=== PATIENT | female | born 1995 | race Caucasian/White ===

== ENCOUNTER → 2024-03-03 16:51 | Outpatient (REF) | payer OTHER, SELFPAY | LOC: PNTC 16:51 | PROVIDERS: ATTENDING PHYSICIAN Obstetrics & Gynecology | DX: Z36.0 Encounter for antenatal screening for chromosomal anomalies (principal); Z36.82 Encounter for antenatal screening for nuchal translucency; Z34.80 Encounter for supervision of other normal pregnancy, unspecified trimester | CPT/HCPCS: 76801; 76813 ==

== ENCOUNTER → 2024-04-20 06:46 | Outpatient (REF) | payer OTHER, SELFPAY | LOC: PNTC 06:46 | PROVIDERS: ATTENDING PHYSICIAN Obstetrics & Gynecology | DX: Z34.00 Encounter for supervision of normal first pregnancy, unspecified trimester (principal); Z34.80 Encounter for supervision of other normal pregnancy, unspecified trimester | CPT/HCPCS: 76805 ==

== ENCOUNTER 2024-09-01 16:33 | Inpatient (IN) | payer OTHER, SELFPAY ==
[2024-09-01 16:40] VITALS: BMI 27.6
[2024-09-01 16:50] VITALS: BP 127/62
[2024-09-01 17:22] LABS: Urine Albumin Negative (Neg - Trace); Urine Bilirubin Negative (Negative); Urine Character Clear (Clear); Urine Color Yellow; Urine Glucose Negative (Negative); Urine Ketone Negative (Negative); Urine Leukocyte Negative (Negative); Urine Nitrite Negative (Negative); Urine Occult Blood Negative (Negative); Urine Urobilinogen Negative (Neg - 1+)
[2024-09-01 17:31] LABS: Hematocrit 39.1 % (37.0-47.0); Hemoglobin 13.4 g/dL (12.0-16.0); Mean Corp Hgb Conc. 34.3 g/dL (33.0-37.0); Mean Corpuscular Hgb 30.9 pg (27.0-31.0); Mean Corpuscular Volume 90.1 fL (81.0-99.0); Mean Platelet Volume 11.6 fL (7.4-10.4); Platelet Count 160 10^3/uL (130-400); Red Blood Cell Count 4.34 10^6/uL (4.20-5.40); Red Cell Dist. Width 13.1 % (11.5-14.5); White Blood Cell Count 10.1 10^3/uL (4.8-10.8)
[2024-09-01 17:39] LABS: ALT (SGPT) 15 U/L (0-35); AST (SGOT) 24 U/L (14-36); Albumin 3.4 g/dl (3.5-5.0); Alkaline Phosphatase 169 U/L (38-126); Blood Urea Nitrogen 12 mg/dl (7-17); Calcium 9.2 mg/dl (8.4-10.2); Carbon Dioxide 20 mmol/L (22-30); Chloride 107 mmol/L (98-107); Estimated Creatinine Clearance 122 ml/min; Glucose 86 mg/dl (70-99); Sodium 132 mmol/L (135-145); Total Bilirubin 0.4 mg/dl (0.2-1.3); Total Protein 6.2 g/dl (6.3-8.2); eGFR > 60.00
[2024-09-01 17:42] LABS: Protein/creatinine Ratio 0.9; Urine Protein 14 mg/dl
[2024-09-01 20:37] LABS: Uric Acid 5.7 mg/dl (2.5-6.2)
[2024-09-02] MEDS: STADOL 1 MG IV (01:08)
[2024-09-02] MEDS: LR 1000 IV ×3 (02:26→11:56)
[2024-09-02] MEDS: PITOCIN 30 UNITS/NSS 500 ML IV (06:52)
[2024-09-02] MEDS: SUBLIMAZE 100 MCG EPIDURAL (11:39)
[2024-09-02] MEDS: FENTANYL/BUPIVACAINE 100 EPIDURAL (11:40)
[2024-09-02] MEDS: ZOFRAN 4 MG IV (14:09)
[2024-09-02] MEDS: MOTRIN 600 MG PO (19:19)
[2024-09-03] MEDS: MOTRIN 600 MG PO ×4 (02:08→22:00)
[2024-09-03 06:04] LABS: Hematocrit 34.7 % (37.0-47.0); Hemoglobin 11.9 g/dL (12.0-16.0)
[2024-09-03] MEDS: SENOKOT-S 1 TABLET PO (08:39)
[2024-09-03 10:56] LABS: Syphilis/T. pallidum Ab Reflex Negative (Negative)
[2024-09-04] MEDS: MOTRIN 600 MG PO ×2 (04:27→10:37)
[2024-09-04] MEDS: TYLENOL 650 MG PO (04:30)
[2024-09-04] MEDS: SENOKOT-S 1 TABLET PO (10:37)
== END 2024-09-04 12:34 | disposition home or self-care (01) | DRG 807 ==
LOC: LDRP 16:33
PROVIDERS: Obstetrics & Gynecology; ADMITTING PHYSICIAN Obstetrics & Gynecology
PROC: 0U7C7ZZ Dilation of Cervix, Via Natural or Artificial Opening (ICD-10-PCS; 2024-09-01)
PROC: 4A1HXCZ Monitoring of Products of Conception, Cardiac Rate, External Approach (ICD-10-PCS; 2024-09-02)
PROC: 0HQ9XZZ Repair Perineum Skin, External Approach (ICD-10-PCS; 2024-09-02)
PROC: 3E033VJ Introduction of Other Hormone into Peripheral Vein, Percutaneous Approach (ICD-10-PCS; 2024-09-02)
PROC: 10E0XZZ Delivery of Products of Conception, External Approach (ICD-10-PCS; 2024-09-02)
DX: O13.4 Gestational [pregnancy-induced] hypertension without significant proteinuria, complicating childbirth (principal); Z37.0 Single live birth; O70.0 First degree perineal laceration during delivery; O69.81X0 Labor and delivery complicated by cord around neck, without compression, not applicable or unspecified; O99.344 Other mental disorders complicating childbirth; F41.9 Anxiety disorder, unspecified; Z3A.39 39 weeks gestation of pregnancy
CPT/HCPCS: 88307; 36415; 80053; 81003; 82570; 84156; 84550; 85014; 85018; 85027; 86780; 86850; 86900; 86901